=== PATIENT | female | born 1975 | race Caucasian/White ===

== ENCOUNTER 2016-12-26 07:14 | Emergency (ER) | payer BC ==
--- NOTE | ~2016-12-26 | CT23 ---
[facility] A Service of [facility] & [facility] RADIOLOGY TEXT RESULTS PATIENT: MICAH GALLEGOS LOCATION: [facility] : 75 UNIT #: [id number] AGE: [address]: Lucy Almazan APRN SEX: F ORDER DR: [id number] [facility] [address] [place], [place] [address] [id number] E MR#: [id number] Acc #: [id number] NAME: MICAH GALLEGOS : 1975 SEX: F STUDY DATE/TIME: 12/26/2016 7:58 UNIT: [facility] ROOM: STUDY DESCRIPTION: CT Angio Neck Attending Physician: Lucy Almazan A.P.R.N. Ordering Physician: Frank Gurrola M.D. Primary Care Physician: Lashonda Rai M.D. MEDICAL IMAGING REPORT This report is preliminary unless electronic signature is present EXAM CT angiogram of the neck. INDICATION Left-sided facial numbness. This started December 23, 2016. FINDINGS Please see CT angio head for results. Dictated by... Micah Rodriguez M.D. THIS IS AN ELECTRONICALLY VERIFIED REPORT Micah Rodriguez M.D. at 12/26/2016 5:21 PM AFF/yoel TD: 12/26/2016 10:40 JOB #: [id number] MEDICAL IMAGING REPORT Page 1 of 1 COPY
--- NOTE | ~2016-12-26 | CT17 ---
[facility] A Service of [facility] & [facility] RADIOLOGY TEXT RESULTS PATIENT: MICAH GALLEGOS LOCATION: [facility] : 75 UNIT #: [id number] AGE: [address]: Lucy Almazan APRN SEX: F ORDER DR: [id number] [facility] [address] [place], [place] [address] [id number] E MR#: [id number] Acc #: [id number] NAME: MICAH GALLEGOS : 1975 SEX: F STUDY DATE/TIME: 12/26/2016 7:58 UNIT: [facility] ROOM: STUDY DESCRIPTION: CT Angio Head Attending Physician: Lucy Almazan A.P.R.N. Ordering Physician: Frank Gurrola M.D. Primary Care Physician: Lashonda Rai M.D. MEDICAL IMAGING REPORT This report is preliminary unless electronic signature is present EXAM CT angiogram of the head and neck. INDICATION Left-sided facial numbness. This started December 23, 2016. TECHNIQUE Axial CT imaging was obtained through the head and neck following the administration of intravenous contrast material. Following this, 3-D reformatted images were obtained. This CT exam was performed with one or more of the following radiation dose reduction techniques: automatic exposure control, adjustment of mA and/or kV according to patient size, and iterative reconstruction. FINDINGS No significant atherosclerotic involvement of the aortic arch is identified. The innominate artery is widely patent. Right common carotid artery also appears to be widely patent. I do think there is probably some minimal atherosclerotic plaque involving the proximal right internal carotid artery with really no significant narrowing noted. No additional disease is identified within the right internal carotid artery. Right middle cerebral and anterior cerebral arteries are widely patent as is the anterior communicating artery. Left anterior cerebral artery is patent. 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 Both posterior communicating arteries are patent. Left internal carotid artery is widely patent without evidence of flow-limiting stenosis, as is the left common carotid artery. Both vertebral arteries are also widely patent with no evidence of flow-limiting stenosis, aneurysm or dissection. The basilar artery appears to be patent as are the posterior cerebral arteries. Brain parenchyma appears unremarkable. No enhancing lesions are seen. Visualized paranasal sinuses and mastoid air cells appear clear. No STS. [facility] A Service of [facility] RADIOLOGY TEXT RESULTS PATIENT: MICAH GALLEGOS LOCATION: [facility] : 75 UNIT #: [id number] AGE: [address]: Lucy Almazan BEVELER SEX: F ORDER DR: eloisa osseous abnormalities are identified. No pathologically enlarged cervical lymph nodes are seen. Thyroid gland does appears somewhat heterogeneous, particularly within the left lobes. Underlying thyroid nodule is not excluded. This could be further assessed with dedicated thyroid ultrasound. Images through the lung apices demonstrate background emphysematous changes, somewhat advanced finding for this patient's age of 41. IMPRESSION 1. No evidence of aneurysm, dissection, or flow-limiting stenosis. Cerebral vasculature appears widely patent. 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 2. Heterogeneous appearance to the thyroid gland. This could reflect some underlying nodules. This would be better assessed with dedicated thyroid ultrasound on a nonemergent outpatient basis. 3. Patient does have background emphysematous changes noted at the lung apices, somewhat advanced finding for this patient's age of 41. There is some apical scarring identified bilaterally within the right upper lobe. This does have a somewhat more nodular configuration measuring up to about 9 mm in size. Again, while this is favored to represent some apical fibrosis, I would suggest short-term CT followup in 3 months given background emphysematous changes. Dictated by... Micah Rodriguez M.D. THIS IS AN ELECTRONICALLY VERIFIED REPORT Micah Rodriguez M.D. at 12/26/2016 5:21 PM AFF/tmw TD: 12/26/2016 10:39 JOB #: [id number] MEDICAL IMAGING REPORT Page 1 of 1 COPY
--- NOTE | ~2016-12-26 | MR18 ---
[facility] A Service of [facility] RADIOLOGY TEXT RESULTS PATIENT: MICAH GALLEGOS LOCATION: [facility] : 75 UNIT #: [id number] AGE: [address]: Lucy Almazan APRN SEX: F ORDER DR: [id number] [facility] [address] [place], [place] [address] [id number] E MR#: [id number] Acc #: [id number] NAME: MICAH GALLEGOS : 1975 SEX: F STUDY DATE/TIME: 12/26/2016 9:06 UNIT: [facility] ROOM: STUDY DESCRIPTION: MR Brain Wo Contrast Attending Physician: Lucy Almazan A.P.R.N. Ordering Physician: Lucy Almazan A.P.R.N. Primary Care Physician: Lashonda Rai M.D. MRI CENTER REPORT This report is preliminary unless electronic signature is present. EXAM MRI of the brain without contrast dated 12/26/2016. COMPARISON STUDIES MRI brain and MRA brain dated 05/26/2008. CTA head and neck dated 12/26/2016. HISTORY Patient has numbness in the left side of the face since 12/23/2016. Worsening. FINDINGS Multisequence, multiplanar imaging of the brain was obtained without contrast. No acute stroke, space-occupying intracranial mass, mass effect, midline shift, or hydrocephalus. Age-appropriate brain parenchyma is seen. Prominent perivascular Virchow-Ruiz spaces are noted along the lateral aspect of bilateral anterior commissures particularly on the right. Nasal septum is slightly deviated to the right. Paranasal sinuses, orbits with the ocular structures, mastoids do not demonstrate any significant abnormality. Thick slices through the sella with the pituitary gland, pineal region, and upper cervical spine are within normal limits. IMPRESSION No significant intracranial abnormality including acute stroke. Dictated by.Khurram. Demetrius Fleming M.D. THIS IS AN ELECTRONICALLY VERIFIED REPORT [facility] A Service of [facility] RADIOLOGY TEXT RESULTS PATIENT: MICAH GALLEGOS LOCATION: [facility] : 75 UNIT #: [id number] AGE: [address]: Lucy Almazan APRN SEX: F ORDER DR: Demetrius Fleming M.D. at 12/27/2016 8:49 AM CPR/tmw TD: 12/26/2016 11:50 JOB #: [id number] MRI CENTER REPORT Page 1 of 1 COPY
--- NOTE | ~2016-12-26 | EKG ---
PATIENT: MICAH GALLEGOS UNIT #: [id number] Ventricular Rate: 55 BPM Atrial Rate: 55 BPM P-R Interval: 114 ms QRS Duration: 82 ms Q-T Interval: 432 ms QTC Calculation(Bezet): 413 ms P [place]: 0 degrees Calculated R [place]: 51 degrees Calculated T [place]: 39 degrees Diagnosis Line: Sinus bradycardia Diagnosis Line: Otherwise normal ECG Diagnosis Line: When compared with ECG of 05-SEP-2016 12:51, Diagnosis Line: No significant change was found Diagnosis Line: Confirmed by HAROON ZAMORA MD ([id number]) on 12/26/2016 Diagnosis Line: 11:32:12 PM INTERPRETING MD: NOAH LEE
--- NOTE | ~2016-12-26 | CT71 ---
[facility] A Service of [facility] RADIOLOGY TEXT RESULTS PATIENT: MICAH GALLEGOS LOCATION: [facility] : 75 UNIT #: [id number] AGE: [address]: Lucy Almazan APRN SEX: F ORDER DR: [id number] [facility] [address] [place], [place] [address] [id number] E MR#: [id number] Acc #: [id number] NAME: MICAH GALLEGOS : 1975 SEX: F STUDY DATE/TIME: 12/26/2016 7:48 UNIT: [facility] ROOM: STUDY DESCRIPTION: CT Head Wo Contrast Attending Physician: Lucy Almazan A.P.R.N. Ordering Physician: Frank Gurrola M.D. Primary Care Physician: Lashonda Rai M.D. MEDICAL IMAGING REPORT This report is preliminary unless electronic signature is present EXAM CT brain without contrast media. HISTORY Left-sided facial numbness, dizziness, nausea beginning on 12/23/2016. TECHNIQUE Axial imaging of the brain was performed without contrast and compared directly to a prior study of February 26, 2015. This CT exam was performed with one or more of the following radiation dose reduction techniques: automatic exposure control, adjustment of mA and/or kV according to patient size, and iterative reconstruction. FINDINGS Ventricular size and configuration remains normal. No intra or extraaxial mass lesions, fluid collections or mass effect are seen. No focal areas of low attenuation or evidence of acute intracranial hemorrhage. Bone windows are reviewed. The paranasal sinuses and mastoid air cells are normally aerated and clear. Temporal bones appear unremarkable. CONCLUSION Normal noncontrast CT of the brain. No change from prior studies. Dictated by... Carlos Arellano M.D. THIS IS AN ELECTRONICALLY VERIFIED REPORT Carlos Arellano M.D. at 12/28/2016 12:00 PM [facility]IVIANA/yoel [facility] A Service of [facility] RADIOLOGY TEXT RESULTS PATIENT: MICAH GALLEGOS [id number] 75 UNIT #: [id number] AGE: [address]: Lucy Almazan APRN SEX: F ORDER DR: TD: 12/26/2016 09:19 JOB #: [id number] MEDICAL IMAGING REPORT Page 1 of 1 COPY
[~2016-12-26 07:14] MED LIST: ASPIRIN81 M2 PO; CIPRO PO; FLONASE16 GM; GABAPENTIN600 MG PO; HYDROCODONE-APA1 T57 PO; LEVSIN0.125 M1 SL; LEXAPRO20 MG PO
[2016-12-26 08:01] LABS: POC - CREATININE 0.84 mg/dL (0.44-1.03); POC - GFR >60.0 mL/min (>60)
[2016-12-26 08:25] LABS: BASOPHIL# 0.1 X10e3 (0-0.3); BASOPHIL% 0.8 % (0-2.5); DIFF IND NO; EOSINOPHIL# 0.1 X10e3 (0-0.7); EOSINOPHIL% 1.5 % (0.0-7.0); HEMATOCRIT 38.8 % (35.0-45.0); HEMOGLOBIN 13.2 gm/dL (12.0-16.0); LYMPHOCYTE# 2.2 X10e3 (1.0-3.5); LYMPHOCYTE% 34.1 % (17.0-45.0); MEAN CELL VOLUME 97.8 FL (83-96); MEAN CORPUSCULAR HEMOGLOBIN 33.4 PG (28-34); MEAN CORPUSCULAR HGB CONC 34.1 g/dL (30-36); MEAN PLATELET VOLUME 9.1 FL (6.5-11.5); MONOCYTE# 0.5 X10e3 (0-1.0); MONOCYTE% 7.2 % (3.0-12.0); NEUTROPHIL# 3.6 X10e3 (1.5-7.1); NEUTROPHIL% 56.4 % (40-75); PLATELET COUNT 125 X10e3 (140-420); RED BLOOD COUNT 3.96 X10e (3.90-5.30); RED CELL DISTRIBUTION WIDTH 12.6 % (11.0-15.5); WHITE BLOOD COUNT 6.4 X10e3 (4.0-10.5)
[2016-12-26 08:37] LABS: PROTHROMBIN TIME (PATIENT) 10.7 SECONDS (9.6-11.5)
[2016-12-26 08:52] LABS: ALBUMIN SERUM 3.8 g/dL (3.5-5.0); BILIRUBIN, DIRECT 0.1 mg/dL (0.0-0.2); BILIRUBIN,INDIRECT 0.5 mg/dL (0.0-0.9); BILIRUBIN,TOTAL 0.6 mg/dL (0.2-2.0); BUN/CREATININE RATIO 12.85; CALCIUM SERUM 8.6 mg/dL (8.4-10.2); CREATININE SERUM 0.7 mg/dL (0.6-1.4); GLOM FILT RATE Estimated 107.6 mL/min (>60); POTASSIUM 3.7 mmol/L (3.5-5.1); PROTEIN TOTAL SERUM 6.9 g/dL (6.0-8.3)
== END 2016-12-26 11:32 | disposition home or self-care (01) ==
LOC: CED 07:14
PROVIDERS: Nurse Practitioner
DX: F45.8 Other somatoform disorders (principal); K58.9 Irritable bowel syndrome, unspecified; G43.909 Migraine, unspecified, not intractable, without status migrainosus; N28.9 Disorder of kidney and ureter, unspecified; F41.9 Anxiety disorder, unspecified; F17.210 Nicotine dependence, cigarettes, uncomplicated; F32.9 Major depressive disorder, single episode, unspecified; Z90.49 Acquired absence of other specified parts of digestive tract; Z90.710 Acquired absence of both cervix and uterus; Z98.51 Tubal ligation status; Z98.890 Other specified postprocedural states; Z88.8 Allergy status to other drugs, medicaments and biological substances
CPT/HCPCS: 36415; 70450; 70496; 70498; 70551; 80048; 80076; 82565; 82947; 85025; 85610; 93005; 99284; Q9967